=== PATIENT | male | born 1940 | race Native Hawaiian/Other Pacific Islander ===

== ENCOUNTER 2017-01-11 11:44 | Inpatient (IN) | payer MEDICARE, OTHER ==
[2017-01-11 18:58] VITALS: BMI 27.6
--- NOTE | 2017-01-11 19:26 | CP.PCM.HP ---
History of Present Illness - History of Present Illness History of Present Illness: 76 yo female with history of previous CVA with residual speech deficit, CAD ( CABG), DM2, COPD, AFib (on Xarelto), CHF and CKD brought [place] [facility] [place] because of sudden right sided weakness and right facial droop. CT scan of the head showed left putamen hemorrhagic infarct. Pt was admitted in ICU and all anticoagulant and antiplatelet were held. Pt is now transferred and admitted to acute rehab to continue management and continue rehab. including PT/OT and speech therapy. Present on Admission - Present on Admission Any Indicators Present on Admission: No History of DVT/PE: No History of Uncontrolled Diabetes: No Urinary Catheter: No Decubitus Ulcer Present: No Review of Systems - Review of Systems All systems: reviewed and no additional remarkable complaints except (aside from those mentioned above, 12 point system review were negative by me) Past Patient History - Infectious Disease Hx of Infectious Diseases: None - Tetanus Immunizations Tetanus Immunization: Unknown - Past Medical History & Family History Past Medical History?: Yes - Past Social History Smoking Status: Heavy Smoker > 10 Cigarettes Daily Chewing Tobacco Use: No Cigar Use: No Alcohol: None Drugs: Denies Home Situation {Lives}: With Family - CARDIAC Hx Atrial Fibrillation: Yes Hx Congestive Heart Failure: Yes Hx Hypercholesterolemia: Yes Hx Hypertension: Yes - PULMONARY Hx Chronic Obstructive Pulmonary Disease (COPD): Yes - NEUROLOGICAL HX Cerebrovascular Accident: Yes - HEENT Hx HEENT Problems: No - RENAL Hx Chronic Kidney Disease: Yes - ENDOCRINE/METABOLIC Hx Diabetes Mellitus Type 2: Yes - HEMATOLOGICAL/ONCOLOGICAL Hx Blood Disorders: No - INTEGUMENTARY Hx Dermatological Problems: No - MUSCULOSKELETAL/RHEUMATOLOGICAL Hx Musculoskeletal Disorders: No - GASTROINTESTINAL Hx Gastrointestinal Disorders: No - GENITOURINARY/GYNECOLOGICAL Hx Genitourinary Disorders: No - PSYCHIATRIC Hx Psychophysiologic Disorder: No - SURGICAL HISTORY Hx Coronary Artery Bypass Graft: Yes - ANESTHESIA Hx Anesthesia: Yes Hx Anesthesia Reactions: No Meds Allergies/Adverse Reactions: Allergies Allergy/AdvReac Type Severity Reaction Status Date / Time No Known Allergies Allergy Verified 01/11/17 14:04 Physical Exam - Constitutional Appears: No Acute Distress - Head Exam Head Exam: ATRAUMATIC - Eye Exam Eye Exam: absent: Scleral icterus - ENT Exam ENT Exam: Mucous Membranes Moist - Neck Exam Neck exam: Negative for: Meningismus - Respiratory Exam Respiratory Exam: Clear to Auscultation Bilateral. absent: Respiratory Distress - Cardiovascular Exam Cardiovascular Exam: REGULAR RHYTHM, +S1, +S2 - GI/Abdominal Exam GI & Abdominal Exam: Soft. absent: Tenderness - Rectal Exam Rectal Exam: Deferred - Neurological Exam Neurological exam: Alert, Oriented x3 - Psychiatric Exam Psychiatric exam: Normal Affect - Skin Skin Exam: Dry, Intact Assessment & Plan (1) CVA (cerebral vascular accident) Status: Acute Comment: admit to Acute Rehab. physiatry consult with Dr Leija. continue PT/ OT and speech therapy (2) CAD (coronary artery disease) Status: Acute Comment: hold ASA and Xarelto. continue statin and Metoprolol (3) Afib Status: Acute Comment: rate controlled. continue Cardizem and Metoprolol. hold Xarelto and ASA (4) HTN (hypertension) Status: Acute Comment: continue Amlodipine, Metoprolol, Valsartan and Cardizem (5) DM2 (diabetes mellitus, type 2) Status: Acute Comment: accuchek ACHS with low Lispro coverage. HgA1C, BMP in am. Metformin 500mg PO BID (6) COPD (chronic obstructive pulmonary disease) Status: Acute Comment: Duoneb q 4hrs prn for wheezing/SOB. Fluticasone/Vilanterol inhaler daily
[2017-01-11] MEDS ORDERED: Albuterol-Ipratrop 3 mg / 0.5 (3 ml) UD IH PRN (19:35)
[2017-01-11] MEDS: Insulin Lispro (humaLOG) 100 Units/ml Inj SC SCH (21:50)
[2017-01-12] MEDS: Pantoprazole 40 mg EC Tab PO SCH (06:22)
[2017-01-12] MEDS: Insulin Lispro (humaLOG) 100 Units/ml Inj SC SCH ×4 (06:42→21:20)
[2017-01-12 07:18] LABS: BASO % 0.5 % (0.0-2.0); EOS # 0.4 K/uL (0.0-0.7); HEMATOCRIT 33.8 % (35.0-51.0); LYMPH # 1.5 K/uL (1.0-4.3); LYMPH % 21.6 % (20.0-40.0); MEAN CELL VOLUME 94.7 fl (80.0-94.0); MEAN CORPUSCULAR HEMOGLOBIN 31.5 pg (27.0-31.0); MEAN CORPUSCULAR HGB CONC 33.2 g/dL (33.0-37.0); MEAN PLATELET VOLUME 8.9 fl (7.2-11.7); MONO # 0.6 K/uL (0.0-0.8); MONO % 8.9 % (0.0-10.0); NEUT # 4.2 K/uL (1.8-7.0); NRBC % 0.1 % (0.0-0.0); RED CELL DISTRIBUTION WIDTH 13.7 % (11.5-14.5); WHITE BLOOD COUNT 6.7 K/uL (4.8-10.8)
[2017-01-12 07:32] LABS: BLOOD UREA NITROGEN 15 mg/dl (9-20); CALCIUM 8.8 mg/dL (8.4-10.2); CARBON DIOXIDE 26 mmol/L (22-30); CHLORIDE 107 mmol/L (98-107); GFR AFRICAN-AMERICAN > 60; GLUCOSE,RANDOM 86 mg/dL (75-110); POTASSIUM 3.6 MMOL/L (3.6-5.0); SODIUM 143 mmol/l (132-148)
[2017-01-12] MEDS: Fluticasone-Salmeterol 250-50mcg Diskus IH SCH ×2 (09:46→21:18)
--- NOTE | 2017-01-12 12:53 | CP.PCM.CON ---
History of Present Illness - History of Present Illness History of Present Illness: Dr. Leija PMR consultation on Ann Jonas, born 1940, who has been admitted to [facility] for acute inpatient rehabilitation following a repeat CVA with left ICH and right HP. He has had some good early recovery. He also had a CVA with primarily a speech issue. Again, with some dysarthria and dysphagia. He is right hand dominant Review of Systems - Constitutional Constitutional: absent: Anorexia, Chills - EENT Nose/Mouth/Throat: absent: Nasal Congestion, Bleeding Gums - Cardiovascular Cardiovascular: absent: Chest Pain - Respiratory Respiratory: absent: Cough, Wheezing - Gastrointestinal Gastrointestinal: absent: Abdominal Pain, Constipation - Musculoskeletal Musculoskeletal: absent: Back Pain - Integumentary Integumentary: absent: Bleeding Lesions, Pruritus - Neurological Neurological: Abnormal Gait. absent: Dizziness, Radicular Pain - Psychiatric Psychiatric: absent: Anxiety Past Patient History - Infectious Disease Hx of Infectious Diseases: None - Tetanus Immunizations Tetanus Immunization: Unknown - Past Medical History & Family History Past Medical History?: Yes - Past Social History Smoking Status: Heavy Smoker > 10 Cigarettes Daily Chewing Tobacco Use: No Cigar Use: No Alcohol: None Drugs: Denies Home Situation {Lives}: With Family (+ steps) - CARDIAC Hx Atrial Fibrillation: Yes Hx Congestive Heart Failure: Yes Hx Hypercholesterolemia: Yes Hx Hypertension: Yes - PULMONARY Hx Chronic Obstructive Pulmonary Disease (COPD): Yes - NEUROLOGICAL HX Cerebrovascular Accident: Yes - HEENT Hx HEENT Problems: No - RENAL Hx Chronic Kidney Disease: Yes - ENDOCRINE/METABOLIC Hx Diabetes Mellitus Type 2: Yes - HEMATOLOGICAL/ONCOLOGICAL Hx Blood Disorders: No - INTEGUMENTARY Hx Dermatological Problems: No - MUSCULOSKELETAL/RHEUMATOLOGICAL Hx Musculoskeletal Disorders: No - GASTROINTESTINAL Hx Gastrointestinal Disorders: No - GENITOURINARY/GYNECOLOGICAL Hx Genitourinary Disorders: No - PSYCHIATRIC Hx Psychophysiologic Disorder: No - SURGICAL HISTORY Hx Coronary Artery Bypass Graft: Yes - ANESTHESIA Hx Anesthesia: Yes Hx Anesthesia Reactions: No Meds Allergies/Adverse Reactions: Allergies Allergy/AdvReac Type Severity Reaction Status Date / Time No Known Allergies Allergy Verified 01/11/17 14:04 - Medications Medications: Current Medications Albuterol/Ipratropium (Duoneb 3 Mg/0.5 Mg (3 Ml) Ud) 3 ml IH Q4 PRN PRN Reason: Wheezing, SOB Amlodipine Besylate (Norvasc) 10 mg PO DAILY [facility] Last Admin: 01/12/17 09:47 Dose: 10 mg Atorvastatin Calcium (Lipitor) 80 mg PO HS [facility] Last Admin: 01/11/17 22:04 Dose: 80 mg Diltiazem HCl (Cardizem) 30 mg PO Q8 [facility] Last Admin: 01/12/17 06:22 Dose: 30 mg Insulin Human Lispro (Humalog) 0 units SC [facility] PRN Reason: Protocol Last Admin: 01/12/17 12:05 Dose: Not Given Metformin HCl (Glucophage) 500 mg PO BID [facility] Last Admin: 01/12/17 09:46 Dose: 500 mg Metoprolol Tartrate (Lopressor) 100 mg PO Q12 [facility] Last Admin: 01/12/17 09:46 Dose: 100 mg Pantoprazole Sodium (Protonix Ec Tab) 40 mg PO 0630 [facility] Last Admin: 01/12/17 06:22 Dose: 40 mg Fluticasone/Salmeterol (Advair Diskus 250/50) 1 puff IH Q12 [facility] Last Admin: 01/12/17 09:46 Dose: 1 puff Valsartan (Diovan) 160 mg PO DAILY [facility] Last Admin: 01/12/17 09:48 Dose: 160 mg Physical Exam - Constitutional Appears: Non-toxic, No Acute Distress - Head Exam Head Exam: ATRAUMATIC, NORMAL INSPECTION, NORMOCEPHALIC - Eye Exam Eye Exam: EOMI, Normal appearance - ENT Exam ENT Exam: Mucous Membranes Moist - Respiratory Exam Respiratory Exam: NORMAL BREATHING PATTERN - Cardiovascular Exam Cardiovascular Exam: REGULAR RHYTHM - GI/Abdominal Exam GI & Abdominal Exam: absent: Distended, Firm - Extremities Exam Extremities exam: Negative for: calf tenderness, pedal edema - Neurological Exam Neurological exam: Alert, Oriented x3 - Psychiatric Exam Psychiatric exam: Normal Affect, Normal Mood Results - Vital Signs Recent Vital Signs: Last Vital Signs Temp 98.0 F 01/12/17 08:43 Pulse 67 01/12/17 09:47 Resp 20 01/12/17 08:43 BP 141/71 01/12/17 09:47 Pulse Ox 98 01/12/17 08:43 - Labs Result Diagrams: 01/12/17 07:05 01/12/17 07:05 Labs: Laboratory Results - last 24 hr 01/11/17 01/12/17 01/12/17 20:46 06:20 07:05 WBC 6.7 RBC 3.57 L Hgb 11.2 L Hct 33.8 L MCV 94.7 H MCH 31.5 H MCHC 33.2 RDW 13.7 Plt Count 174 MPV 8.9 Neut % (Auto) 63.0 Lymph % (Auto) 21.6 Gove % (Auto) 8.9 Eos % (Auto) 6.0 H Baso % (Auto) 0.5 Neut # 4.2 Lymph # 1.5 Gove # 0.6 Eos # 0.4 Baso # 0.0 Sodium 143 Potassium 3.6 Chloride 107 Carbon Dioxide 26 Anion Gap 13 BUN 15 Creatinine 1.0 Est GFR ( Amer) > 60 Est GFR (Non-Af Amer) > 60 POC Glucose (mg/dL) 148 H 98 Random Glucose 86 Calcium 8.8 01/12/17 12:02 WBC RBC Hgb Hct MCV MCH MCHC RDW Plt Count MPV Neut % (Auto) Lymph % (Auto) Gove % (Auto) Eos % (Auto) Baso % (Auto) Neut # Lymph # Gove # Eos # Baso # Sodium Potassium Chloride Carbon Dioxide Anion Gap BUN Creatinine Est GFR ( Amer) Est GFR (Non-Af Amer) POC Glucose (mg/dL) 98 Random Glucose Calcium Assessment & Plan - Assessment and Plan (Free Text) Assessment: left ICH with right HP minimal residual on MMT sit to stand contact guard assist Plan: PT/OT to continue to help increase functional independence Team conference for d/c planning Pain: controlled Vascular: no evidence of DVT GI: No evidence of constipation or diarrhea Patient is an excellent acute rehabilitation candidate and will have focused speech, PT, OT and recreational therapy to help facilitate a safe and appropriate d/c plan impairment code 01.2
--- NOTE | 2017-01-12 14:47 | CON ---
DATE: 01/12/2017 CHIEF COMPLAINT: Right-sided weakness. HISTORY OF PRESENT ILLNESS: This is a 76-year-old man with an history of old cerebrovascular acciden t with residual speech deficit, coronary artery disease, type 2 diabetes mellitus, COPD; AFib, was on Xarelto; CHF, CKD, who was brought to [facility] on 01/06/2017 because of sudden ons et right-sided weakness, right facial droop and slurred speech. A CT of the head showed left putamen hemorrhage/infarct. The patient was in ICU and old anticoagulants/antiplatelets were held. He was on Xarelto at that time. The patient also has history of chronic atrial fibrillation and has history of persistent atrial flutter where he was managed in [facility]. Currently he is at [facility] for ongoing physical therapy for his right-sided weakness. He is doing very well, able to lift up the arms and very limited pronator drift on the right. He is able to throw the ball and walk with assistance. He has some expressive aphasia. REVIEW OF SYSTEMS: A 14-point review of systems is negative except for the HPI. PAST MEDICAL HISTORY: History of CVA in the past with residual deficit, CAD, CABG, type 2 diabetes, COPD; AFib, on Xarelto; with a recent CVA with a left putaminal hemorrhage on 01/06/2017. SOCIAL HISTORY: No illicit drug use, smoking, or ETOH abuse at this time. FAMILY HISTORY: Noncontributory. REVIEW OF SYSTEMS: A 14-point review of systems is negative except for the HPI. ALLERGIES: No known drug allergies. HOME MEDICATIONS: Reviewed via nurse's reconciliation sheet. ____: Noncontributory. PHYSICAL EXAMINATION: VITAL SIGNS: Temperature 98, pulse rate 67, blood pressure 141/71, respiratory rate 20, oxygen 98% v ia room air. GENERAL: The patient is sitting up in bed, in no acute distress. HEENT: Atraumatic, normocephalic. PERRLA. Extraocular muscles intact. NECK: Supple. No JVD, no adenopathy noted. HEART: Irregular rate and rhythm. No murmurs, rubs, or gallops. ABDOMEN: Soft, nontender, nondistended. Bowel sounds present. EXTREMITIES: No clubbing, no cyanosis. Peripheral pulses 2+ felt bilaterally. NEUROLOGIC: The patient is alert, oriented to person, place, month and year. Poor attention span. Slow thought process. Recall after 5 minutes is 1/3. Speech is dysarthric with some mild expressive aphasia. MOTOR: Has mild right-sided weakness 4++ to 5-/5 on the right when compared to the left. Toes are u pgoing bilaterally. SENSORY: Light touch, pinprick, proprioception, vibration intact except for decreased vibration of t he toes and knees. REFLEXES: DTRs are 2+ throughout and 1 at the knees and ankles. COORDINATION: [id number] intact. GAIT: Deferred for now. LABORATORY DATA: Sodium 143, potassium 3.6, chloride 107, carbon dioxide 26, BUN 15, creatinine 1. Random glucose of 86. ASSESSMENT AND PLAN: This is a 76-year-old man with past medical history of coronary artery disease, status post coronary artery bypass graft, history of type 2 diabetes mellitus, history of dyslipidem ia, history of chronic obstructive pulmonary disease, history of cerebrovascular accident in 11/2015 with residual speech deficit; history of atrial fibrillation, was on Xarelto; who came in to [facility] on 01/06/2017 for right-sided weakness and dysarthria, found to have a left putami nal hemorrhage secondary to uncontrolled blood pressure as well as being on Xarelto. He still a smok er; smokes 10 cigarettes for the past 60 years. His left putaminal hemorrhage is secondary to uncont rolled hypertension, superimposed underlying atherosclerotic disease and being on Xarelto. At this t [place], recommend: 1. Repeat CAT scan in 2 weeks from the onset of the bleed. If stable, can place the patient on a ba by aspirin 81 mg and, on the 4th week, instead of Xarelto would like to place the patient Eliquis 2.5 mg p.o. b.i.d. if the patient's CAT scan is stable. 2. The patient will follow up with his chief of internal medicine, Dr. Yap, as an outpatient. 3. Continue with physical, occupational and speech therapy here at [facility]. 4. Advise smoking cessation since it is a risk factor for him having strokes, and continue with curr ent present medical management. Once again, thank you for this consult. Ari Infante MD cc: [id number] TT: 01/12/2017 14:47:10 Confirmation # [id number] Dictation # [id number]
--- NOTE | 2017-01-12 17:38 | CP.PCM.PN ---
Subjective - Date & Time of Evaluation Date of Evaluation: 01/12/17 Time of Evaluation: 17:37 - Subjective Subjective: left ICH, right HP Objective - Vital Signs/Intake and Output Vital Signs (last 24 hours): Temp Pulse Resp BP Pulse Ox 97.7 F 62 20 119/56 L 100 01/12/17 16:54 01/12/17 16:54 01/12/17 16:54 01/12/17 16:54 01/12/17 16:54 - Medications Medications: Current Medications Albuterol/Ipratropium (Duoneb 3 Mg/0.5 Mg (3 Ml) Ud) 3 ml IH Q4 PRN PRN Reason: Wheezing, SOB Amlodipine Besylate (Norvasc) 10 mg PO DAILY [facility] Last Admin: 01/12/17 09:47 Dose: 10 mg Atorvastatin Calcium (Lipitor) 80 mg PO HS [facility] Last Admin: 01/11/17 22:04 Dose: 80 mg Diltiazem HCl (Cardizem) 30 mg PO Q8 [facility] Last Admin: 01/12/17 13:32 Dose: 30 mg Insulin Human Lispro (Humalog) 0 units SC [facility] PRN Reason: Protocol Last Admin: 01/12/17 16:58 Dose: Not Given Metformin HCl (Glucophage) 500 mg PO BID [facility] Last Admin: 01/12/17 16:57 Dose: 500 mg Metoprolol Tartrate (Lopressor) 100 mg PO Q12 [facility] Last Admin: 01/12/17 09:46 Dose: 100 mg Pantoprazole Sodium (Protonix Ec Tab) 40 mg PO 0630 [facility] Last Admin: 01/12/17 06:22 Dose: 40 mg Fluticasone/Salmeterol (Advair Diskus 250/50) 1 puff IH Q12 [facility] Last Admin: 01/12/17 09:46 Dose: 1 puff Valsartan (Diovan) 160 mg PO DAILY [facility] Last Admin: 01/12/17 09:48 Dose: 160 mg - Labs Labs: 01/12/17 07:05 01/12/17 07:05 Physiatry Overall Plan of Care - Overall Plan of Care Estimated Length of Stay in Weeks: 2 Rehab Impairment: Mobility, Gait, Speech, Balance Etiologic Diagnosis: Cerebrovascular Accident Rehab/Medical Prognosis: Good - Anticipated Interventions Physical Therapy:: Yes Occupational Therapy:: Yes Speech Therapy:: Yes Recreational Therapy:: Yes - Therapy Goals Bed Mobility: Independent Ambulation: Supervision Functional Positional Changes:: Supervision - Discharge Plan Identification of Barriers to Discharge: Home Situation Discharge Destination: Home
[2017-01-13] MEDS: Pantoprazole 40 mg EC Tab PO SCH (07:08)
[2017-01-13] MEDS: Insulin Lispro (humaLOG) 100 Units/ml Inj SC SCH ×4 (07:08→21:36)
[2017-01-13] MEDS: Fluticasone-Salmeterol 250-50mcg Diskus IH SCH ×2 (08:33→21:06)
[2017-01-13] MEDS ORDERED: Docusate-Senna 50 mg-8.6 mg Tab PO PRN (18:00)
--- NOTE | 2017-01-13 18:28 | CP.PCM.PN ---
Subjective - Date & Time of Evaluation Date of Evaluation: 01/13/17 Time of Evaluation: 18:28 - Subjective Subjective: Patient seen in room denies sob/cp no fever or LOZANO sit to stand CS improved and feels good in PT/OT Objective - Vital Signs/Intake and Output Vital Signs (last 24 hours): Temp Pulse Resp BP Pulse Ox 97.8 F 56 L 20 148/74 95 01/13/17 15:45 01/13/17 15:45 01/13/17 15:45 01/13/17 15:45 01/13/17 15:45 - Medications Medications: Current Medications Albuterol/Ipratropium (Duoneb 3 Mg/0.5 Mg (3 Ml) Ud) 3 ml IH Q4 PRN PRN Reason: Wheezing, SOB Amlodipine Besylate (Norvasc) 10 mg PO DAILY [facility] Last Admin: 01/13/17 08:34 Dose: 10 mg Atorvastatin Calcium (Lipitor) 80 mg PO HS [facility] Last Admin: 01/12/17 21:18 Dose: 80 mg Diltiazem HCl (Cardizem) 30 mg PO Q8 [facility] Last Admin: 01/13/17 14:29 Dose: 30 mg Insulin Human Lispro (Humalog) 0 units SC [facility] PRN Reason: Protocol Last Admin: 01/13/17 16:58 Dose: Not Given Metformin HCl (Glucophage) 500 mg PO BID [facility] Last Admin: 01/13/17 17:00 Dose: 500 mg Metoprolol Tartrate (Lopressor) 100 mg PO Q12 [facility] Last Admin: 01/13/17 08:33 Dose: 100 mg Pantoprazole Sodium (Protonix Ec Tab) 40 mg PO 0630 [facility] Last Admin: 01/13/17 07:08 Dose: 40 mg Fluticasone/Salmeterol (Advair Diskus 250/50) 1 puff IH Q12 [facility] Last Admin: 01/13/17 08:33 Dose: 1 puff Senna/Docusate Sodium (Senokot S 50 Mg-8.6 Mg) 2 tab PO HS PRN PRN Reason: Constipation Valsartan (Diovan) 160 mg PO DAILY [facility] Last Admin: 01/13/17 08:33 Dose: 160 mg - Labs Labs: 01/12/17 07:05 01/12/17 07:05
[2017-01-14] MEDS: Pantoprazole 40 mg EC Tab PO SCH (05:52)
[2017-01-14] MEDS: Insulin Lispro (humaLOG) 100 Units/ml Inj SC SCH ×4 (06:32→21:09)
[2017-01-14] MEDS: Fluticasone-Salmeterol 250-50mcg Diskus IH SCH ×2 (08:42→20:37)
--- NOTE | 2017-01-14 09:19 | CP.PCM.PN ---
Subjective - Date & Time of Evaluation Date of Evaluation: 01/14/17 Time of Evaluation: 14:19 - Subjective Subjective: no new complaints no chest pain no sob no new weakness tolerating pt well feels improving vss nad Objective - Vital Signs/Intake and Output Vital Signs (last 24 hours): Temp Pulse Resp BP Pulse Ox 97.7 F 67 18 121/54 L 100 01/14/17 07:41 01/14/17 08:43 01/14/17 07:41 01/14/17 08:43 01/14/17 07:41 Gen: WDWN, cooperative, alert HEENT: NCAT, PERRL, EOMI, no erythema, exudates, gross hearing intact, no lesions Neck: Soft, supple, no lymphadenopathy, no JVD Heart: +S1S2, RRR, No MRG Lung: CTAB, No WRR Abd: soft, NT, ND, BSx4, no HSM, no masses Ext: warm, well perfused, pedal pulses intact Neuro: AAOx3 Skin: Warm, Dry, no rash Psych: Normal mood, affect with appropriate range - Medications Medications: Current Medications Albuterol/Ipratropium (Duoneb 3 Mg/0.5 Mg (3 Ml) Ud) 3 ml IH Q4 PRN PRN Reason: Wheezing, SOB Amlodipine Besylate (Norvasc) 10 mg PO DAILY [facility] Last Admin: 01/14/17 08:43 Dose: 10 mg Atorvastatin Calcium (Lipitor) 80 mg PO HS [facility] Last Admin: 01/13/17 21:04 Dose: 80 mg Diltiazem HCl (Cardizem) 30 mg PO Q8 [facility] Last Admin: 01/14/17 05:57 Dose: 30 mg Insulin Human Lispro (Humalog) 0 units SC [facility] PRN Reason: Protocol Last Admin: 01/14/17 06:32 Dose: Not Given Metformin HCl (Glucophage) 500 mg PO BID [facility] Last Admin: 01/14/17 08:42 Dose: 500 mg Metoprolol Tartrate (Lopressor) 100 mg PO Q12 [facility] Last Admin: 01/14/17 08:43 Dose: 100 mg Pantoprazole Sodium (Protonix Ec Tab) 40 mg PO 0630 [facility] Last Admin: 01/14/17 05:52 Dose: 40 mg Fluticasone/Salmeterol (Advair Diskus 250/50) 1 puff IH Q12 [facility] Last Admin: 01/14/17 08:42 Dose: 1 puff Senna/Docusate Sodium (Senokot S 50 Mg-8.6 Mg) 2 tab PO HS PRN PRN Reason: Constipation Last Admin: 01/13/17 21:06 Dose: 2 tab Valsartan (Diovan) 160 mg PO DAILY [facility] Last Admin: 01/14/17 08:42 Dose: 160 mg - Labs Labs: 01/12/17 07:05 01/12/17 07:05 Assessment and Plan - Assessment and Plan (Free Text) Plan: 76 yo female with history of previous CVA with residual speech deficit, CAD ( CABG), DM2, COPD, AFib (on Xarelto), CHF and CKD [place] [facility] [place] because of sudden right sided weakness and right facial droop. CT scan of the head showed left putamen hemorrhagic infarct. Pt was admitted in ICU and all anticoagulant and antiplatelet were held. Pt is now transferred and admitted to acute rehab to continue management and continue rehab. including PT/OT and speech therapy. (1) CVA (cerebral vascular accident) Status: Acute Comment: physiatry consult with Dr Leija. continue PT/OT and speech therapy HOLD asa statin neuro consult Dr. Infante (2) CAD (coronary artery disease) Status: Acute Comment: hold ASA and Xarelto. continue statin and Metoprolol and Diovan (3) Afib Status: Acute Comment: rate controlled. continue Cardizem and Metoprolol. hold Xarelto and ASA (4) HTN (hypertension) Status: Acute Comment: continue Amlodipine, Metoprolol, Valsartan and Cardizem (5) DM2 (diabetes mellitus, type 2) Status: Acute Comment: accuchek ACHS with low Lispro coverage. HgA1C, BMP in am. Metformin 500mg PO BID (6) COPD (chronic obstructive pulmonary disease) Status: Acute Comment: Duoneb q 4hrs prn for wheezing/SOB. Fluticasone/Salmeterol inhaler daily
[2017-01-15] MEDS: Pantoprazole 40 mg EC Tab PO SCH (06:20)
[2017-01-15] MEDS: Insulin Lispro (humaLOG) 100 Units/ml Inj SC SCH ×4 (06:31→22:33)
[2017-01-15] MEDS: Fluticasone-Salmeterol 250-50mcg Diskus IH SCH ×2 (08:45→21:38)
[2017-01-16] MEDS: Pantoprazole 40 mg EC Tab PO SCH (06:34)
[2017-01-16] MEDS: Insulin Lispro (humaLOG) 100 Units/ml Inj SC SCH ×4 (07:26→22:28)
[2017-01-16] MEDS: Fluticasone-Salmeterol 250-50mcg Diskus IH SCH ×2 (08:34→21:31)
[2017-01-16] MEDS ORDERED: Phenylephrine 0.25 % Supp PR PRN (17:40)
[2017-01-17] MEDS: Zinc Oxide 5 APPL/28 GM OINT TP SCH ×3 (00:21→17:11)
[2017-01-17] MEDS: Insulin Lispro (humaLOG) 100 Units/ml Inj SC SCH ×4 (07:04→21:35)
[2017-01-17] MEDS: Pantoprazole 40 mg EC Tab PO SCH (07:04)
[2017-01-17] MEDS: Fluticasone-Salmeterol 250-50mcg Diskus IH SCH ×2 (08:36→21:26)
--- NOTE | 2017-01-17 13:33 | CP.PCM.PN ---
Subjective - Date & Time of Evaluation Date of Evaluation: 01/17/17 Time of Evaluation: 13:32 - Subjective Subjective: tolerating PT well, feeling well no complaints no cp no sob +hemorrhoids, +constipation - give cream from home, will give additional stool softeners/laxative Objective - Vital Signs/Intake and Output Vital Signs (last 24 hours): Temp Pulse Resp BP Pulse Ox 97.5 F L 69 18 139/77 99 01/17/17 08:00 01/17/17 08:37 01/17/17 08:00 01/17/17 08:37 01/17/17 08:00 Gen: WDWN, cooperative, alert HEENT: NCAT, PERRL, EOMI, no erythema, exudates, gross hearing intact, no lesions Neck: Soft, supple, no lymphadenopathy, no JVD Heart: +S1S2, RRR, No MRG Lung: CTAB, No WRR Abd: soft, NT, ND, BSx4, no HSM, no masses Ext: warm, well perfused, pedal pulses intact Neuro: AAOx3 Skin: Warm, Dry, no rash Psych: Normal mood, affect with appropriate range - Medications Medications: Current Medications Albuterol/Ipratropium (Duoneb 3 Mg/0.5 Mg (3 Ml) Ud) 3 ml IH Q4 PRN PRN Reason: Wheezing, SOB Amlodipine Besylate (Norvasc) 10 mg PO DAILY [facility] Last Admin: 01/17/17 08:36 Dose: 10 mg Atorvastatin Calcium (Lipitor) 80 mg PO HS [facility] Last Admin: 01/16/17 21:32 Dose: 80 mg Diltiazem HCl (Cardizem) 30 mg PO Q8 [facility] Last Admin: 01/17/17 06:49 Dose: 30 mg Insulin Human Lispro (Humalog) 0 units SC ACHS [facility] PRN Reason: Protocol Last Admin: 01/17/17 12:17 Dose: Not Given Metformin HCl (Glucophage) 500 mg PO BID [facility] Last Admin: 01/17/17 08:36 Dose: 500 mg Metoprolol Tartrate (Lopressor) 100 mg PO Q12 [facility] Last Admin: 01/17/17 08:37 Dose: 100 mg Pantoprazole Sodium (Protonix Ec Tab) 40 mg PO 0630 [facility] Last Admin: 01/17/17 07:04 Dose: 40 mg Petrolatum (Boudreauxs) 1 appl TP BID [facility] Last Admin: 01/17/17 08:35 Dose: 1 appl Phenylephrine HCl (Preparation H Suppositories) 1 supp [place] BID PRN PRN Reason: hemorrhoid Fluticasone/Salmeterol (Advair Diskus 250/50) 1 puff IH Q12 [facility] Last Admin: 01/17/17 08:36 Dose: 1 puff Senna/Docusate Sodium (Senokot S 50 Mg-8.6 Mg) 2 tab PO HS PRN PRN Reason: Constipation Last Admin: 01/13/17 21:06 Dose: 2 tab Valsartan (Diovan) 160 mg PO DAILY [facility] Last Admin: 01/17/17 08:38 Dose: 160 mg - Labs Labs: 01/12/17 07:05 01/12/17 07:05 Assessment and Plan - Assessment and Plan (Free Text) Plan: 76 yo female with history of previous CVA with residual speech deficit, CAD ( CABG), DM2, COPD, AFib (on Xarelto), CHF and CKD brought to [facility] on 01/06/2017 because of sudden right sided weakness and right facial droop. CT scan of the head showed left putamen hemorrhagic infarct. Pt was admitted in ICU and all anticoagulant and antiplatelet were held. Pt is now transferred and admitted to acute rehab to continue management and continue rehab. including PT/OT and speech therapy. (1) CVA (cerebral vascular accident) Status: Acute Comment: physiatry consult with Dr Leija. continue PT/OT and speech therapy HOLD asa statin neuro consult Dr. Infante (2) CAD (coronary artery disease) Status: Acute Comment: hold ASA and Xarelto. continue statin and Metoprolol and Diovan (3) Afib Status: Acute Comment: rate controlled. continue Cardizem and Metoprolol. hold Xarelto and ASA (4) HTN (hypertension) Status: Acute Comment: continue Amlodipine, Metoprolol, Valsartan and Cardizem (5) DM2 (diabetes mellitus, type 2) Status: Acute Comment: accuchek ACHS with low Lispro coverage. HgA1C, BMP in am. Metformin 500mg PO BID (6) COPD (chronic obstructive pulmonary disease) Status: Acute Comment: Duoneb q 4hrs prn for wheezing/SOB. Fluticasone/Salmeterol inhaler daily (7) Hemorrhoids continue hemorrhoid cream
[2017-01-17] MEDS: POLYETHYLENE GLYCOL 3350 17 GM/Dose PACKET PO SCH (14:53)
[2017-01-18] MEDS: Pantoprazole 40 mg EC Tab PO SCH (06:01)
[2017-01-18] MEDS: Insulin Lispro (humaLOG) 100 Units/ml Inj SC SCH ×4 (07:10→21:38)
[2017-01-18] MEDS: Fluticasone-Salmeterol 250-50mcg Diskus IH SCH ×2 (09:13→21:33)
[2017-01-18] MEDS: Zinc Oxide 5 APPL/28 GM OINT TP SCH ×2 (09:15→16:51)
[2017-01-18] MEDS: POLYETHYLENE GLYCOL 3350 17 GM/Dose PACKET PO SCH (09:20)
--- NOTE | 2017-01-18 13:37 | PSY.TMCNF ---
Nursing - Vital Signs Vital Signs (Last 8 hours): Vital Signs 01/18/17 01/18/17 01/18/17 06:01 09:00 09:18 Temperature 97.3 F L Pulse Rate 67 66 63 Respiratory 20 Rate Blood Pressure 137/71 137/86 137/73 O2 Sat by Pulse 97 Oximetry 01/18/17 09:20 Temperature Pulse Rate 66 Respiratory Rate Blood Pressure 137/86 O2 Sat by Pulse Oximetry Pain: 0 - Precautions: Precautions: Fall Prevention - Medications/Other Issues Comment: Safety - Consults Comment: Dr. Leija, Dr. Infante - Toileting Toileting: Minimal Assistance - Bladder Management Bladder Pattern: Normal Voiding Method: Urinal Bladder Management: Minimal Assistance - Bowel Management Bowel Pattern: Normal Bowel Management: Minimal Assistance - Transfers Transfers: Contact Guard - ADL's ADL's: Minimal Assistance - Pain Management Comments: Denies pain - Patient/Family Teaching Comments: Safety and post CVA care - Goals/Time Frame Comments: Per IPOC Physical Therapy - Bed Mobility Bed Mobility: Supervision - Transfers Wheelchair to Mat: Verbal Cues, Contact Guard Sit to Stand: Supervision, Verbal Cues - Ambulation Level of Assistance: Verbal Cues, Contact Guard Distance (ft.): 180 Assistive Devices: Single point cane Comment: Gait deviations: narrow JOSELINE, decreased heel strike and step height on RLE, impulsivity, discontinuous steps when performing turns - Stair Negotiation Stairs: Level of Assistance: Supervision, Verbal Cues Number of Stairs: 11 Handrails: Right Stairs: Assistive Devices: Right Handrail, Single point cane - Standing Balance Static Stand: Supervision Dynamic Stand: Contact Guard Assist - Pain Pain (assessed during therapy session): 0 - Insight/Carryover Insight/Carryover: Fair - Patient/Family Education Comment: Pt education provided for inc. safety awareness and proper techniques during functional mobility training. - Assessment/Plan Assessment: Pt requires encouragement to participate in sessions and will participate in recreation therapy sessions if pt is interested. Pt currently requires min-mod verbal cues for word recall and for safety awareness. Pt demonstrates decrease carryover of orientation and safety cues. Pt is forgetful at times and requires verbal cues for orientation. - Goals Timeframe: 2 weeks Goals: SIt < > supine with independence. Sit < > stand with mod I/ I. Ambulate 500 ft on even/uneven surfaces mod I. ascend/descend 10 stairs with one handrail mod I - Provider License Number: [id number] Occupational Therapy - Arousal/Attention/Orientation Patient Orientation: Person, Place, Time, Appropriate to Age - ADL/IADL Self Feeding: Supervision, Set-up Help Grooming: Supervision, Set-up Help Dressing-Upper Extremity: Supervision, Set-up Help Dressing-Lower Extremity: Supervision, Set-up Help, Contact Guard - Sitting Balance Static Sitting: Independent without upper extremity support Dynamic Sitting: Reaches across midline, Reaches within base of support, Requires supervision - Transfers Wheelchair to Bed Transfers: Contact Guard Toilet Transfers: Contact Guard Tub Transfers: Contact Guard - Wheelchair Management Level of Assistance: Supervision - Upper Extremity Status Right Upper Extremity Comment: R deckhand crab boat strength: 55#. R pinch strength: 13#. ROM = WFL. decreased coordination and fine motor control Left Upper Extremity Comment: L deckhand crab boat strength: 45#. L pinch strength: 12#. ROM = WFL - Pain Pain (assessed during therapy session): 0 - Insight/Carryover Insight/Carryover: Fair - Patient/Family Education Comment: Pt education provided for inc. safety awareness and proper techniques during functional mobility training. - Assessment/Plan Assessment: Pt requires encouragement to participate in sessions and will participate in recreation therapy sessions if pt is interested. Pt currently requires min-mod verbal cues for word recall and for safety awareness. Pt demonstrates decrease carryover of orientation and safety cues. Pt is forgetful at times and requires verbal cues for orientation. - Goals Timeframe: 2 weeks Goals: SIt < > supine with independence. Sit < > stand with mod I/ I. Ambulate 500 ft on even/uneven surfaces mod I. ascend/descend 10 stairs with one handrail mod I - Provider Therapist: Hardeep Bryant MS, OTR/L Speech Therapy - Consult Information Patient on Program: Yes Medical Diagnosis: CVA Treatment Diagnosis: -mild-moderate cognitive linguistic deficits. -mild- moderate dysarthria. -suspected mild oropharyngeal dysphagia - Assessment Expressive Language Impairment: Mild Problem Solving Impairment: Mild Memory Impairment: Moderate Speech/Articulation Impairment: Moderate Comment: mild-moderate dysarthria Dysphagia/Swallowing Impairment: Mild - Plan Assessment: Pt requires encouragement to participate in sessions and will participate in recreation therapy sessions if pt is interested. Pt currently requires min-mod verbal cues for word recall and for safety awareness. Pt demonstrates decrease carryover of orientation and safety cues. Pt is forgetful at times and requires verbal cues for orientation. - Provider Therapist: Roslyn Kc License Number: [id number] Recreational Therapy - Participation Participation: Participates in Individual and/or Group Sessions - Attendance Attendance: 3-5 times per week - Activities Leisure Activities: Cards and Games - Socialization Level of Socialization: Initiates/interacts freely with care givers and peer - Diversional Time Diversional Time: television - Assessment Assessment/Plan: Pt requires encouragement to participate in sessions and will participate in recreation therapy sessions if pt is interested. Pt currently requires min-mod verbal cues for word recall and for safety awareness. Pt demonstrates decrease carryover of orientation and safety cues. Pt is forgetful at times and requires verbal cues for orientation. Problems Currently Limiting Participation: impaired fine motor function, decrease direction following, impulsivity, decrease problem solving, decrease leisure awareness level Goals and Time Frame: Pt will be encouraged to participate in 1:1 and group recreation therapy sessions 3-5x week to improve problem solving skills, fine motor skills, and leisure awareness level. - Provider Therapist: Carol Mackay, [facility] #[id number] Nutrition - Current Diet Current Diet/ Supplement/ Feedings: Heart Healthy, Moderate Consistent Carbohydrate, 2 gm Na diet - Appetite Percent Meal Consumed: 50-74% - Comments Comments: Safety and post CVA care - Assessment/Goals/Time Frame Assessment/Goals/Time Frame: Safety - Provider Provider: Sushila Patricio MS, RD Case Management - Discharge Plan Discharge Plan: Home with significant other/family Rehabilitation Plan - Treatment Plan Treatment Plan: Physical Therapy, Occupational Therapy, Speech, Dietary, Patient /Family Education - Discharge Plan Estimated Date of Discharge: 01/25/17 Discharge to: Home
--- NOTE | 2017-01-18 14:21 | CP.PCM.PN ---
Subjective - Date & Time of Evaluation Date of Evaluation: 01/18/17 Time of Evaluation: 14:20 - Subjective Subjective: Patient seen in room denies sob/cp or fever no joint pain safety concerns in therapies and this was discussed with the family and that he cannot be alone at this point family is aware ELOS 01/25/17 Objective - Vital Signs/Intake and Output Vital Signs (last 24 hours): Temp Pulse Resp BP Pulse Ox 97.3 F L 66 20 137/86 97 01/18/17 09:00 01/18/17 14:16 01/18/17 09:00 01/18/17 14:16 01/18/17 09:00 - Medications Medications: Current Medications Albuterol/Ipratropium (Duoneb 3 Mg/0.5 Mg (3 Ml) Ud) 3 ml IH Q4 PRN PRN Reason: Wheezing, SOB Amlodipine Besylate (Norvasc) 10 mg PO DAILY [facility] Last Admin: 01/18/17 09:20 Dose: 10 mg Atorvastatin Calcium (Lipitor) 80 mg PO HS [facility] Last Admin: 01/17/17 21:25 Dose: 80 mg Diltiazem HCl (Cardizem) 30 mg PO Q8 [facility] Last Admin: 01/18/17 14:16 Dose: 30 mg Insulin Human Lispro (Humalog) 0 units SC ACHS [facility] PRN Reason: Protocol Last Admin: 01/18/17 12:21 Dose: Not Given Metformin HCl (Glucophage) 500 mg PO BID [facility] Last Admin: 01/18/17 09:17 Dose: 500 mg Metoprolol Tartrate (Lopressor) 100 mg PO Q12 [facility] Last Admin: 01/18/17 09:18 Dose: 100 mg Pantoprazole Sodium (Protonix Ec Tab) 40 mg PO 0630 [facility] Last Admin: 01/18/17 06:01 Dose: 40 mg Petrolatum (Boudreauxs) 1 appl TP BID [facility] Last Admin: 01/18/17 09:15 Dose: 1 appl Phenylephrine HCl (Preparation H Suppositories) 1 supp [place] BID PRN PRN Reason: hemorrhoid Polyethylene Glycol (Miralax) 17 gm PO DAILY [facility] Last Admin: 01/18/17 09:20 Dose: Not Given Fluticasone/Salmeterol (Advair Diskus 250/50) 1 puff IH Q12 [facility] Last Admin: 01/18/17 09:13 Dose: 1 puff Senna/Docusate Sodium (Senokot S 50 Mg-8.6 Mg) 2 tab PO HS PRN PRN Reason: Constipation Last Admin: 01/13/17 21:06 Dose: 2 tab Valsartan (Diovan) 160 mg PO DAILY [facility] Last Admin: 01/18/17 09:16 Dose: 160 mg - Labs Labs: 01/12/17 07:05 01/12/17 07:05
[2017-01-19] MEDS: Pantoprazole 40 mg EC Tab PO SCH (05:31)
[2017-01-19] MEDS: Insulin Lispro (humaLOG) 100 Units/ml Inj SC SCH ×4 (07:04→22:32)
[2017-01-19] MEDS: Zinc Oxide 5 APPL/28 GM OINT TP SCH ×2 (08:39→17:51)
[2017-01-19] MEDS: POLYETHYLENE GLYCOL 3350 17 GM/Dose PACKET PO SCH (08:40)
[2017-01-19] MEDS: Fluticasone-Salmeterol 250-50mcg Diskus IH SCH ×2 (08:40→22:05)
--- NOTE | 2017-01-19 11:58 | CP.PCM.PN ---
Subjective - Date & Time of Evaluation Date of Evaluation: 01/19/17 Time of Evaluation: 15:04 - Subjective Subjective: tolerating pt well no complaints good spirits states he woudl like to go home vss nad no cp no dyspnea Objective - Vital Signs/Intake and Output Vital Signs (last 24 hours): Temp Pulse Resp BP Pulse Ox 98.1 F 63 20 143/71 98 01/19/17 08:40 01/19/17 08:40 01/19/17 08:40 01/19/17 08:40 01/19/17 08:40 Gen: WDWN, cooperative, alert HEENT: NCAT, PERRL, EOMI, no erythema, exudates, gross hearing intact, no lesions Neck: Soft, supple, no lymphadenopathy, no JVD Heart: +S1S2, RRR, No MRG Lung: CTAB, No WRR Abd: soft, NT, ND, BSx4, no HSM, no masses Ext: warm, well perfused, pedal pulses intact Neuro: AAOx3 Skin: Warm, Dry, no rash Psych: Normal mood, affect with appropriate range - Medications Medications: Current Medications Albuterol/Ipratropium (Duoneb 3 Mg/0.5 Mg (3 Ml) Ud) 3 ml IH Q4 PRN PRN Reason: Wheezing, SOB Amlodipine Besylate (Norvasc) 10 mg PO DAILY [facility] Last Admin: 01/19/17 08:38 Dose: 10 mg Atorvastatin Calcium (Lipitor) 80 mg PO HS [facility] Last Admin: 01/18/17 21:33 Dose: 80 mg Diltiazem HCl (Cardizem) 30 mg PO Q8 [facility] Last Admin: 01/19/17 05:30 Dose: 30 mg Insulin Human Lispro (Humalog) 0 units SC ACHS [facility] PRN Reason: Protocol Last Admin: 01/19/17 07:04 Dose: Not Given Metformin HCl (Glucophage) 500 mg PO BID [facility] Last Admin: 01/19/17 08:39 Dose: 500 mg Metoprolol Tartrate (Lopressor) 100 mg PO Q12 [facility] Last Admin: 01/19/17 08:39 Dose: 100 mg Pantoprazole Sodium (Protonix Ec Tab) 40 mg PO 0630 [facility] Last Admin: 01/19/17 05:31 Dose: 40 mg Petrolatum (Boudreauxs) 1 appl TP BID [facility] Last Admin: 01/19/17 08:39 Dose: 1 appl Phenylephrine HCl (Preparation H Suppositories) 1 supp [place] BID PRN PRN Reason: hemorrhoid Polyethylene Glycol (Miralax) 17 gm PO DAILY [facility] Last Admin: 01/19/17 08:40 Dose: 17 gm Fluticasone/Salmeterol (Advair Diskus 250/50) 1 puff IH Q12 [facility] Last Admin: 01/19/17 08:40 Dose: 1 puff Senna/Docusate Sodium (Senokot S 50 Mg-8.6 Mg) 2 tab PO HS PRN PRN Reason: Constipation Last Admin: 01/13/17 21:06 Dose: 2 tab Valsartan (Diovan) 160 mg PO DAILY [facility] Last Admin: 01/19/17 08:39 Dose: 160 mg - Labs Labs: 01/12/17 07:05 01/12/17 07:05 Assessment and Plan - Assessment and Plan (Free Text) Plan: 76 yo female with history of previous CVA with residual speech deficit, CAD ( CABG), DM2, COPD, AFib (on Xarelto), CHF and CKD brought to [facility] on 01/06/2017 because of sudden right sided weakness and right facial droop. CT scan of the head showed left putamen hemorrhagic infarct. Pt was admitted in ICU and all anticoagulant and antiplatelet were held. Pt is now transferred and admitted to acute rehab to continue management and continue rehab. including PT/OT and speech therapy. Doing well, continue current management (1) CVA (cerebral vascular accident) Status: Acute Comment: physiatry consult with Dr Leija. continue PT/OT and speech therapy HOLD asa statin neuro consult Dr. Infante (2) CAD (coronary artery disease) Status: Acute Comment: hold ASA and Xarelto. continue statin and Metoprolol and Diovan (3) Afib Status: Acute Comment: rate controlled. continue Cardizem and Metoprolol. hold Xarelto and ASA (4) HTN (hypertension) Status: Acute Comment: continue Amlodipine, Metoprolol, Valsartan and Cardizem (5) DM2 (diabetes mellitus, type 2) Status: Acute Comment: accuchek ACHS with low Lispro coverage. HgA1C, BMP in am. Metformin 500mg PO BID (6) COPD (chronic obstructive pulmonary disease) Status: Acute Comment: Duoneb q 4hrs prn for wheezing/SOB. Fluticasone/Salmeterol inhaler daily (7) Hemorrhoids continue hemorrhoid cream
--- NOTE | 2017-01-19 14:35 | CT ---
PROCEDURE: CT HEAD WITHOUT CONTRAST. HISTORY: post stroke COMPARISON: No prior outside examinations available TECHNIQUE: Axial computed tomography images were obtained through the head/brain without intravenous contrast. Radiation dose: Total exam DLP = 1251.62 mGy-cm. FINDINGS: HEMORRHAGE: Left basal gangliar hemorrhage. Surrounding vasogenic edema noted. There is persistent bright blood seen at the site of what is known to be a hemorrhagic infarct on basis of an outside examination, as per the patient's nurse. No other intracranial hemorrhage is seen. There is no extra-axial hemorrhage or intraventricular hemorrhage. BRAIN: No intracranial mass identified. Moderate age-appropriate diffuse atrophy. There is moderate to severe periventricular white matter lucency with patchy and confluent areas of lucency in the deep and subcortical white matter bilaterally, consistent with microvascular ischemic. VENTRICLES: Unremarkable. No hydrocephalus. CALVARIUM: Unremarkable. PARANASAL SINUSES: Unremarkable as visualized. No significant inflammatory changes. MASTOID AIR CELLS: Unremarkable as visualized. No inflammatory changes. OTHER FINDINGS: None. IMPRESSION: Left basal ganglia hemorrhage with surrounding vasogenic edema. This is reportedly at the site of the known hemorrhagic infarct as demonstrated on outside prior CT examination, according to the patient's nurse. No prior examination has been submitted for comparison. Moderate to severe chronic white matter ischemic change. Moderate atrophy. The findings in this examination were discussed by telephone with the nurse caring for this patient on Minnie, at 2:18 p.m. on 01/19/2017.
[2017-01-20] MEDS: Pantoprazole 40 mg EC Tab PO SCH (06:11)
[2017-01-20] MEDS: Insulin Lispro (humaLOG) 100 Units/ml Inj SC SCH ×4 (06:46→21:24)
[2017-01-20] MEDS: Zinc Oxide 5 APPL/28 GM OINT TP SCH ×2 (09:21→16:59)
[2017-01-20] MEDS: Fluticasone-Salmeterol 250-50mcg Diskus IH SCH ×2 (09:21→21:16)
[2017-01-20] MEDS: POLYETHYLENE GLYCOL 3350 17 GM/Dose PACKET PO SCH (09:23)
--- NOTE | 2017-01-20 18:51 | CP.PCM.PN ---
Subjective - Date & Time of Evaluation Date of Evaluation: 01/20/17 Time of Evaluation: 18:50 - Subjective Subjective: Patient seen in room had a good day today and improved gait and safety discussed with Ann and the family aware of the impending d/c time continue with current care Objective - Vital Signs/Intake and Output Vital Signs (last 24 hours): Temp Pulse Resp BP Pulse Ox 96.6 F L 66 20 134/72 100 01/20/17 15:38 01/20/17 15:38 01/20/17 15:38 01/20/17 15:38 01/20/17 15:38 - Medications Medications: Current Medications Albuterol/Ipratropium (Duoneb 3 Mg/0.5 Mg (3 Ml) Ud) 3 ml IH Q4 PRN PRN Reason: Wheezing, SOB Amlodipine Besylate (Norvasc) 10 mg PO DAILY [facility] Last Admin: 01/20/17 09:23 Dose: 10 mg Atorvastatin Calcium (Lipitor) 80 mg PO HS [facility] Last Admin: 01/19/17 22:07 Dose: 80 mg Diltiazem HCl (Cardizem) 30 mg PO Q8 [facility] Last Admin: 01/20/17 14:22 Dose: 30 mg Insulin Human Lispro (Humalog) 0 units SC ACHS [facility] PRN Reason: Protocol Last Admin: 01/20/17 16:57 Dose: Not Given Lactulose (Enulose) 20 gm PO DAILY PRN PRN Reason: Constipation Last Admin: 01/19/17 17:47 Dose: 20 gm Metformin HCl (Glucophage) 500 mg PO BID [facility] Last Admin: 01/20/17 16:57 Dose: 500 mg Metoprolol Tartrate (Lopressor) 100 mg PO Q12 [facility] Last Admin: 01/20/17 09:17 Dose: 100 mg Pantoprazole Sodium (Protonix Ec Tab) 40 mg PO 0630 [facility] Last Admin: 01/20/17 06:11 Dose: 40 mg Petrolatum (Boudreauxs) 1 appl TP BID [facility] Last Admin: 01/20/17 16:59 Dose: 1 appl Phenylephrine HCl (Preparation H Suppositories) 1 supp [place] BID PRN PRN Reason: hemorrhoid Polyethylene Glycol (Miralax) 17 gm PO DAILY [facility] Last Admin: 01/20/17 09:23 Dose: 17 gm Fluticasone/Salmeterol (Advair Diskus 250/50) 1 puff IH Q12 [facility] Last Admin: 01/20/17 09:21 Dose: 1 puff Senna/Docusate Sodium (Senokot S 50 Mg-8.6 Mg) 2 tab PO HS PRN PRN Reason: Constipation Last Admin: 01/13/17 21:06 Dose: 2 tab Valsartan (Diovan) 160 mg PO DAILY [facility] Last Admin: 01/20/17 09:17 Dose: 160 mg - Labs Labs: 01/12/17 07:05 01/12/17 07:05
[2017-01-21] MEDS: Pantoprazole 40 mg EC Tab PO SCH (06:18)
[2017-01-21] MEDS: Insulin Lispro (humaLOG) 100 Units/ml Inj SC SCH ×4 (07:14→21:22)
[2017-01-21] MEDS: Fluticasone-Salmeterol 250-50mcg Diskus IH SCH ×2 (08:42→21:19)
[2017-01-21] MEDS: Zinc Oxide 5 APPL/28 GM OINT TP SCH ×2 (08:43→16:44)
[2017-01-21] MEDS: POLYETHYLENE GLYCOL 3350 17 GM/Dose PACKET PO SCH (08:44)
--- NOTE | 2017-01-21 15:47 | CP.PCM.PN ---
Subjective - Date & Time of Evaluation Date of Evaluation: 01/21/17 Time of Evaluation: 11:00 - Subjective Subjective: Pt seen and examined. Did well with therapy, walking along the [address] without difficulty. Objective - Vital Signs/Intake and Output Vital Signs (last 24 hours): Temp Pulse Resp BP Pulse Ox 98.2 F 67 20 127/64 96 01/21/17 09:00 01/21/17 13:26 01/21/17 09:00 01/21/17 13:26 01/21/17 09:00 - Medications Medications: Current Medications Albuterol/Ipratropium (Duoneb 3 Mg/0.5 Mg (3 Ml) Ud) 3 ml IH Q4 PRN PRN Reason: Wheezing, SOB Amlodipine Besylate (Norvasc) 10 mg PO DAILY [facility] Last Admin: 01/21/17 08:44 Dose: 10 mg Atorvastatin Calcium (Lipitor) 80 mg PO HS [facility] Last Admin: 01/20/17 21:22 Dose: 80 mg Diltiazem HCl (Cardizem) 30 mg PO Q8 [facility] Last Admin: 01/21/17 13:26 Dose: 30 mg Insulin Human Lispro (Humalog) 0 units SC ACHS [facility] PRN Reason: Protocol Last Admin: 01/21/17 11:44 Dose: Not Given Lactulose (Enulose) 20 gm PO DAILY PRN PRN Reason: Constipation Last Admin: 01/19/17 17:47 Dose: 20 gm Metformin HCl (Glucophage) 500 mg PO BID [facility] Last Admin: 01/21/17 08:43 Dose: 500 mg Metoprolol Tartrate (Lopressor) 100 mg PO Q12 [facility] Last Admin: 01/21/17 08:43 Dose: 100 mg Pantoprazole Sodium (Protonix Ec Tab) 40 mg PO 0630 [facility] Last Admin: 01/21/17 06:18 Dose: 40 mg Petrolatum (Boudreauxs) 1 appl TP BID [facility] Last Admin: 01/21/17 08:43 Dose: 1 appl Phenylephrine HCl (Preparation H Suppositories) 1 supp [place] BID PRN PRN Reason: hemorrhoid Polyethylene Glycol (Miralax) 17 gm PO DAILY [facility] Last Admin: 01/21/17 08:44 Dose: 17 gm Fluticasone/Salmeterol (Advair Diskus 250/50) 1 puff IH Q12 [facility] Last Admin: 01/21/17 08:42 Dose: 1 puff Senna/Docusate Sodium (Senokot S 50 Mg-8.6 Mg) 2 tab PO HS PRN PRN Reason: Constipation Last Admin: 01/13/17 21:06 Dose: 2 tab Valsartan (Diovan) 160 mg PO DAILY [facility] Last Admin: 01/21/17 08:43 Dose: 160 mg - Labs Labs: 01/12/17 07:05 01/12/17 07:05 - Constitutional Appears: No Acute Distress - Head Exam Head Exam: ATRAUMATIC - Eye Exam Eye Exam: absent: Scleral icterus - ENT Exam ENT Exam: Mucous Membranes Moist - Neck Exam Neck Exam: absent: Meningismus - Respiratory Exam Respiratory Exam: absent: Rhonchi, Wheezes, Respiratory Distress - Cardiovascular Exam Cardiovascular Exam: REGULAR RHYTHM, +S1, +S2 - GI/Abdominal Exam GI & Abdominal Exam: Soft. absent: Tenderness - Rectal Exam Rectal Exam: Deferred - Neurological Exam Neurological Exam: Alert, Oriented x3 - Psychiatric Exam Psychiatric exam: Normal Affect - Skin Skin Exam: Dry, Intact Assessment and Plan - Assessment and Plan (Free Text) Assessment: 76 yo male with history of previous CVA with residual speech deficit, CAD (CABG) , DM2, COPD, AFib (on Xarelto), CHF and CKD [place] [facility] [place] because of sudden onset of right sided weakness and right facial droop. CT scan of the head showed left putamen hemorrhagic infarct. Pt was stabilized and managed in ICU. Pt is now in acute rehab continuing PT/OT and speech therapy. (1) CVA (cerebral vascular accident) physiatry consult with Dr Leija. doing well with PT/OT and speech therapy continue statin, hold ASA neuro consult with Dr. Infante (2) CAD (coronary artery disease) hold ASA and Xarelto. continue statin and Metoprolol and Diovan (3) Afib heart rate controlled. continue Cardizem and Metoprolol. hold Xarelto and ASA (4) HTN (hypertension) BP stable continue Amlodipine, Metoprolol, Valsartan and Cardizem (5) DM2 BS controlled Metformin 500mg PO BID (6) COPD Duoneb q 4hrs prn for wheezing/SOB. Fluticasone/Salmeterol inhaler 1 puff q 12hrs (7) Hemorrhoids continue Preparation H supp [place] BID
--- NOTE | 2017-01-21 17:56 | CP.PCM.PN ---
Subjective - Date & Time of Evaluation Date of Evaluation: 01/21/17 Time of Evaluation: 17:55 - Subjective Subjective: Patient seen in room feeling good denies pain continues to improve safety and balance still in need of acute inpatient rehabilitation Objective - Vital Signs/Intake and Output Vital Signs (last 24 hours): Temp Pulse Resp BP Pulse Ox 98.1 F 69 20 109/57 L 94 L 01/21/17 16:10 01/21/17 16:10 01/21/17 16:10 01/21/17 16:10 01/21/17 16:10 - Medications Medications: Current Medications Albuterol/Ipratropium (Duoneb 3 Mg/0.5 Mg (3 Ml) Ud) 3 ml IH Q4 PRN PRN Reason: Wheezing, SOB Amlodipine Besylate (Norvasc) 10 mg PO DAILY [facility] Last Admin: 01/21/17 08:44 Dose: 10 mg Atorvastatin Calcium (Lipitor) 80 mg PO HS [facility] Last Admin: 01/20/17 21:22 Dose: 80 mg Diltiazem HCl (Cardizem) 30 mg PO Q8 [facility] Last Admin: 01/21/17 13:26 Dose: 30 mg Insulin Human Lispro (Humalog) 0 units SC ACHS [facility] PRN Reason: Protocol Last Admin: 01/21/17 16:13 Dose: Not Given Lactulose (Enulose) 20 gm PO DAILY PRN PRN Reason: Constipation Last Admin: 01/19/17 17:47 Dose: 20 gm Metformin HCl (Glucophage) 500 mg PO BID [facility] Last Admin: 01/21/17 16:44 Dose: 500 mg Metoprolol Tartrate (Lopressor) 100 mg PO Q12 [facility] Last Admin: 01/21/17 08:43 Dose: 100 mg Pantoprazole Sodium (Protonix Ec Tab) 40 mg PO 0630 [facility] Last Admin: 01/21/17 06:18 Dose: 40 mg Petrolatum (Boudreauxs) 1 appl TP BID [facility] Last Admin: 01/21/17 16:44 Dose: 1 appl Phenylephrine HCl (Preparation H Suppositories) 1 supp [place] BID PRN PRN Reason: hemorrhoid Polyethylene Glycol (Miralax) 17 gm PO DAILY [facility] Last Admin: 01/21/17 08:44 Dose: 17 gm Fluticasone/Salmeterol (Advair Diskus 250/50) 1 puff IH Q12 [facility] Last Admin: 01/21/17 08:42 Dose: 1 puff Senna/Docusate Sodium (Senokot S 50 Mg-8.6 Mg) 2 tab PO HS PRN PRN Reason: Constipation Last Admin: 01/13/17 21:06 Dose: 2 tab Valsartan (Diovan) 160 mg PO DAILY [facility] Last Admin: 01/21/17 08:43 Dose: 160 mg - Labs Labs: 01/12/17 07:05 01/12/17 07:05
[2017-01-22] MEDS: Pantoprazole 40 mg EC Tab PO SCH (06:39)
[2017-01-22] MEDS: Insulin Lispro (humaLOG) 100 Units/ml Inj SC SCH ×4 (06:44→21:51)
[2017-01-22 07:19] LABS: HEMATOCRIT 34.5 % (35.0-51.0); MEAN CELL VOLUME 93.8 fl (80.0-94.0); MEAN CORPUSCULAR HEMOGLOBIN 31.8 pg (27.0-31.0); MEAN CORPUSCULAR HGB CONC 33.9 g/dL (33.0-37.0); RED CELL DISTRIBUTION WIDTH 13.9 % (11.5-14.5); WHITE BLOOD COUNT 5.5 K/uL (4.8-10.8)
[2017-01-22 07:23] LABS: BLOOD UREA NITROGEN 24 mg/dl (9-20); CALCIUM 9.2 mg/dL (8.4-10.2); CARBON DIOXIDE 27 mmol/L (22-30); CHLORIDE 107 mmol/L (98-107); GFR AFRICAN-AMERICAN > 60; GLUCOSE,RANDOM 97 mg/dL (75-110); POTASSIUM 4.2 MMOL/L (3.6-5.0); SODIUM 139 mmol/l (132-148)
[2017-01-22] MEDS: POLYETHYLENE GLYCOL 3350 17 GM/Dose PACKET PO SCH (08:24)
[2017-01-22] MEDS: Fluticasone-Salmeterol 250-50mcg Diskus IH SCH ×2 (08:24→21:45)
[2017-01-22] MEDS: Zinc Oxide 5 APPL/28 GM OINT TP SCH ×2 (08:25→17:00)
[2017-01-23] MEDS: Pantoprazole 40 mg EC Tab PO SCH (06:56)
[2017-01-23] MEDS: Insulin Lispro (humaLOG) 100 Units/ml Inj SC SCH ×4 (07:01→22:00)
[2017-01-23 08:14] LABS: BLOOD UREA NITROGEN 24 mg/dl (9-20); CALCIUM 9.2 mg/dL (8.4-10.2); CARBON DIOXIDE 28 mmol/L (22-30); CHLORIDE 105 mmol/L (98-107); GFR AFRICAN-AMERICAN > 60; GLUCOSE,RANDOM 96 mg/dL (75-110); POTASSIUM 4.2 MMOL/L (3.6-5.0); SODIUM 138 mmol/l (132-148)
[2017-01-23] MEDS: Fluticasone-Salmeterol 250-50mcg Diskus IH SCH ×2 (08:40→21:22)
[2017-01-23] MEDS: Zinc Oxide 5 APPL/28 GM OINT TP SCH ×2 (08:40→16:41)
[2017-01-23] MEDS: POLYETHYLENE GLYCOL 3350 17 GM/Dose PACKET PO SCH (08:41)
[2017-01-23 16:06] VITALS: RESP 20
[2017-01-24] MEDS: Pantoprazole 40 mg EC Tab PO SCH (06:24)
[2017-01-24] MEDS: Insulin Lispro (humaLOG) 100 Units/ml Inj SC SCH ×4 (07:41→21:59)
[2017-01-24] MEDS: Fluticasone-Salmeterol 250-50mcg Diskus IH SCH ×2 (08:42→21:56)
[2017-01-24] MEDS: POLYETHYLENE GLYCOL 3350 17 GM/Dose PACKET PO SCH (08:43)
[2017-01-24] MEDS: Zinc Oxide 5 APPL/28 GM OINT TP SCH ×2 (08:43→16:22)
--- NOTE | 2017-01-24 13:03 | CP.PCM.PN ---
Subjective - Date & Time of Evaluation Date of Evaluation: 01/24/17 Time of Evaluation: 14:30 - Subjective Subjective: Patient seen and evaluated bedside. participating with PT. SEUNeeling well. Hemodynamically stable, afebrile. For discharge in AM. Objective - Vital Signs/Intake and Output Vital Signs (last 24 hours): Temp Pulse Resp BP Pulse Ox 97.3 F L 64 20 136/72 98 01/24/17 09:00 01/24/17 09:00 01/24/17 09:00 01/24/17 09:00 01/24/17 09:00 - Medications Medications: Current Medications Albuterol/Ipratropium (Duoneb 3 Mg/0.5 Mg (3 Ml) Ud) 3 ml IH Q4 PRN PRN Reason: Wheezing, SOB Amlodipine Besylate (Norvasc) 10 mg PO DAILY [facility] Last Admin: 01/24/17 08:43 Dose: 10 mg Atorvastatin Calcium (Lipitor) 80 mg PO HS [facility] Last Admin: 01/23/17 21:23 Dose: 80 mg Diltiazem HCl (Cardizem) 30 mg PO Q8 [facility] Last Admin: 01/24/17 06:24 Dose: 30 mg Insulin Human Lispro (Humalog) 0 units SC ACHS [facility] PRN Reason: Protocol Last Admin: 01/24/17 12:08 Dose: Not Given Lactulose (Enulose) 20 gm PO DAILY PRN PRN Reason: Constipation Last Admin: 01/19/17 17:47 Dose: 20 gm Metformin HCl (Glucophage) 500 mg PO BID [facility] Last Admin: 01/24/17 08:44 Dose: 500 mg Metoprolol Tartrate (Lopressor) 100 mg PO Q12 [facility] Last Admin: 01/24/17 08:43 Dose: 100 mg Pantoprazole Sodium (Protonix Ec Tab) 40 mg PO 0630 [facility] Last Admin: 01/24/17 06:24 Dose: 40 mg Petrolatum (Boudreauxs) 1 appl TP BID [facility] Last Admin: 01/24/17 08:43 Dose: Not Given Phenylephrine HCl (Preparation H Suppositories) 1 supp [place] BID PRN PRN Reason: hemorrhoid Polyethylene Glycol (Miralax) 17 gm PO DAILY [facility] Last Admin: 01/24/17 08:43 Dose: Not Given Fluticasone/Salmeterol (Advair Diskus 250/50) 1 puff IH Q12 [facility] Last Admin: 01/24/17 08:42 Dose: 1 puff Senna/Docusate Sodium (Senokot S 50 Mg-8.6 Mg) 2 tab PO HS PRN PRN Reason: Constipation Last Admin: 01/13/17 21:06 Dose: 2 tab Valsartan (Diovan) 80 mg PO DAILY [facility] Last Admin: 01/24/17 08:44 Dose: 80 mg - Labs Labs: 01/22/17 06:00 01/23/17 05:30 - Constitutional Appears: Well, No Acute Distress - Head Exam Head Exam: ATRAUMATIC, NORMAL INSPECTION, NORMOCEPHALIC - Eye Exam Eye Exam: EOMI, Normal appearance, PERRL Pupil Exam: NORMAL ACCOMODATION - ENT Exam ENT Exam: Mucous Membranes Moist, Normal Exam - Neck Exam Neck Exam: Full ROM, Normal Inspection - Respiratory Exam Respiratory Exam: Clear to Ausculation Bilateral, NORMAL BREATHING PATTERN. absent: Rales, Rhonchi, Wheezes - Cardiovascular Exam Cardiovascular Exam: REGULAR RHYTHM, RRR, +S1, +S2. absent: JVD - GI/Abdominal Exam GI & Abdominal Exam: Soft, Normal Bowel Sounds. absent: Distended, Guarding, Tenderness, Rebound - Rectal Exam Rectal Exam: Deferred - Extremities Exam Extremities Exam: Full ROM, Normal Capillary Refill, Normal Inspection. absent : Calf Tenderness, Pedal Edema - Back Exam Back Exam: NORMAL INSPECTION - Neurological Exam Neurological Exam: Alert, Awake, Oriented x3 Additional comments: right facial droop - Psychiatric Exam Psychiatric exam: Normal Affect, Normal Mood - Skin Skin Exam: Dry, Intact, Normal Color, Warm Assessment and Plan - Assessment and Plan (Free Text) Assessment: 76 yo male with history of previous CVA with residual speech deficit, CAD (CABG) , DM2, COPD, AFib (on Xarelto), CHF and CKD brought to [facility] [place] on 01/06/2017 because of sudden onset of right sided weakness and right facial droop. CT scan of the head showed left putamen hemorrhagic infarct. Pt was stabilized and managed in ICU. Pt is now in acute rehab continuing PT/OT and speech therapy. (1) CVA (cerebral vascular accident)-- hemorrhagic physiatry consult with Dr Leija. doing well with PT/OT and speech therapy continue statin, hold ASA For discharge in AM (2) CAD (coronary artery disease) hold ASA and Xarelto. continue statin , Metoprolol and Diovan (3) Afib heart rate controlled. continue Cardizem and Metoprolol. hold Xarelto and ASA due to recent hemorrhagic stroke (4) HTN (hypertension) BP stable continue Amlodipine, Metoprolol, Valsartan and Cardizem (5) DM2 with episodes of hypoglycemia decrease Metformin from 500 mg po bid to once a day hgb A1c 6.0 (6) COPD stable Duoneb q 4hrs prn for wheezing/SOB. Fluticasone/Salmeterol inhaler 1 puff q 12hrs (7) Hemorrhoids continue Preparation H supp [place] BID 8. DVT prophylaxis SCD no anticoagulatin due to recent hemorrhagic stroke
[2017-01-24 19:49] VITALS: O2SAT 98
[2017-01-25] MEDS: Pantoprazole 40 mg EC Tab PO SCH (06:52)
[2017-01-25 06:53] VITALS: PULSE 69
[2017-01-25] MEDS: Insulin Lispro (humaLOG) 100 Units/ml Inj SC SCH ×2 (06:53→11:30)
[2017-01-25] MEDS: Zinc Oxide 5 APPL/28 GM OINT TP SCH (08:55)
[2017-01-25] MEDS: POLYETHYLENE GLYCOL 3350 17 GM/Dose PACKET PO SCH (08:55)
[2017-01-25] MEDS: Fluticasone-Salmeterol 250-50mcg Diskus IH SCH (08:55)
[2017-01-25 08:56] VITALS: BP 118/55
[2017-01-25 08:59] VITALS: TEMP 97.8
--- NOTE | 2017-01-25 11:54 | CP.PCM.DIS ---
Provider - Provider Date of Admission: 01/11/17 18:44 Attending physician: Jens Yi MD Primary care physician: Jens Yi MD Consults: Neurology cosnult physiatry consult Time Spent in preparation of Discharge (in minutes): 15 Hospital Course - Lab Results Lab Results: Most Recent Lab Values WBC 5.5 K/uL (4.8-10.8) 01/22/17 06:00 RBC 3.68 Mil/uL (4.40-5.90) L 01/22/17 06:00 Hgb 11.7 g/dL (12.0-18.0) L 01/22/17 06:00 Hct 34.5 % (35.0-51.0) L 01/22/17 06:00 MCV 93.8 fl (80.0-94.0) 01/22/17 06:00 MCH 31.8 pg (27.0-31.0) H 01/22/17 06:00 MCHC 33.9 g/dL (33.0-37.0) 01/22/17 06:00 RDW 13.9 % (11.5-14.5) 01/22/17 06:00 Plt Count 193 K/uL (130-400) 01/22/17 06:00 MPV 8.9 fl (7.2-11.7) 01/12/17 07:05 Neut % (Auto) 63.0 % (50.0-75.0) 01/12/17 07:05 Lymph % (Auto) 21.6 % (20.0-40.0) 01/12/17 07:05 [place] % (Auto) 8.9 % (0.0-10.0) 01/12/17 07:05 Eos % (Auto) 6.0 % (0.0-4.0) H 01/12/17 07:05 Baso % (Auto) 0.5 % (0.0-2.0) 01/12/17 07:05 Neut # 4.2 K/uL (1.8-7.0) 01/12/17 07:05 Lymph # 1.5 K/uL (1.0-4.3) 01/12/17 07:05 [place] # 0.6 K/uL (0.0-0.8) 01/12/17 07:05 Eos # 0.4 K/uL (0.0-0.7) 01/12/17 07:05 Baso # 0.0 K/uL (0.0-0.2) 01/12/17 07:05 Sodium 138 mmol/l (132-148) 01/23/17 05:30 Potassium 4.2 MMOL/L (3.6-5.0) 01/23/17 05:30 Chloride 105 mmol/L (98-107) 01/23/17 05:30 Carbon Dioxide 28 mmol/L (22-30) 01/23/17 05:30 Anion Gap 9 (10-20) L 01/23/17 05:30 BUN 24 mg/dl (9-20) H 01/23/17 05:30 Creatinine 1.3 mg/dL (0.8-1.5) 01/23/17 05:30 Est GFR ( Amer) > 60 01/23/17 05:30 Est GFR (Non-Af Amer) 53 01/23/17 05:30 POC Glucose (mg/dL) 97 mg/dL (65-110) 01/25/17 05:38 Random Glucose 96 mg/dL (75-110) 01/23/17 05:30 Calcium 9.2 mg/dL (8.4-10.2) 01/23/17 05:30 - Hospital Course Hospital Course: 76 yo male with history of previous CVA with residual speech deficit, CAD (CABG) , DM2, COPD, AFib (on Xarelto), CHF and CKD brought to [facility] [place] on 01/06/2017 because of sudden onset of right sided weakness and right facial droop. CT scan of the head showed left putamen hemorrhagic infarct. Pt was stabilized and managed in ICU. He wsa transferred to acute rehab for physical therapy and partipated well with significant improvement. patient for discharge home today. (1) CVA (cerebral vascular accident)-- hemorrhagic physiatry consult with Dr Leija appreciated particpated well with PT/OT and speech therapy continue statin, hold ASA D/c home today and follow up with PMD (2) CAD (coronary artery disease) hold ASA and Xarelto. continue statin , Metoprolol and Diovan (3) Afib heart rate controlled. continue Cardizem and Metoprolol. hold Xarelto and ASA due to recent hemorrhagic stroke (4) HTN (hypertension) BP stable continue Amlodipine, Metoprolol, Valsartan and Cardizem (5) DM2 with episodes of hypoglycemia decreaseD Metformin from 500 mg po bid to once a day hgb A1c 6.0 (6) COPD stable Duoneb q 4hrs prn for wheezing/SOB. Fluticasone/Salmeterol inhaler 1 puff q 12hrs (7) Hemorrhoids continue Preparation H supp [place] BID 8. DVT prophylaxis SCD no anticoagulatin due to recent hemorrhagic stroke Discharge Exam - Head Exam Head Exam: ATRAUMATIC, NORMAL INSPECTION, NORMOCEPHALIC - Eye Exam Eye Exam: EOMI, Normal appearance Pupil Exam: NORMAL ACCOMODATION - ENT Exam ENT Exam: Normal Exam - Neck Exam Neck exam: Full Rom, Normal Inspection - Respiratory Exam Respiratory Exam: NORMAL BREATHING PATTERN. absent: Clear to PA & Lateral, Rales, Rhonchi, Wheezes - Cardiovascular Exam Cardiovascular Exam: REGULAR RHYTHM, +S1, +S2. absent: JVD - GI/Abdominal Exam GI & Abdominal Exam: Normal Bowel Sounds, Soft. absent: Distended, Guarding, Rebound, Tenderness - Rectal Exam Rectal Exam: Deferred - Extremities Exam Extremities exam: normal capillary refill, normal inspection, pedal pulses present - Back Exam Back exam: NORMAL INSPECTION - Neurological Exam Neurological exam: Alert, Reflexes Normal Additional comments: RIGHT FACIAL DROOP - Psychiatric Exam Psychiatric exam: Normal Affect, Normal Mood - Skin Skin Exam: Dry, Intact, Normal Color, Warm Discharge Plan - Discharge Medications Prescriptions: Fluticasone/Vilanterol [Breo Ellipta 200-25 Mcg INH] 1 each IH DAILY #1 blst.w.dev diltiaZEM [Cardizem] 30 mg PO Q8 #90 tab Valsartan [Diovan] 80 mg PO DAILY #30 tab Atorvastatin [Lipitor] 80 mg PO HS #30 tab Metoprolol Tartrate [Lopressor] 100 mg PO Q12 #60 tab amLODIPine [Norvasc] 10 mg PO DAILY #30 tab Pantoprazole Sodium [Protonix] 40 mg PO 0630 #30 tablet. metFORMIN [glucOPHAGE] 500 mg PO DAILY #30 tab - Follow Up Plan Condition: GOOD Disposition: HOME/ ROUTINE Patient education suggested?: Yes Instructions: Metoprolol (By mouth), Diltiazem (By mouth), Amlodipine (By mouth ), Metformin (By mouth), Atorvastatin (By mouth), Valsartan (By mouth), Pantoprazole (By mouth), Fluticasone/Vilanterol (By breathing), Stroke (DC) Referrals: Jens Yi MD [Primary Care Provider] -
== END 2017-01-25 12:40 | disposition home or self-care (01) | DRG 57 ==
PROC: F08Z4ZZ Home Management Treatment (ICD-10-PCS; principal; 2017-01-11)
PROC: F07L6FZ Therapeutic Exercise Treatment of Musculoskeletal System - Lower Back / Lower Extremity using Assistive, Adaptive, Supportive or Protective Equipment (ICD-10-PCS; 2017-01-11)
PROC: F06Z3ZZ Aphasia Treatment (ICD-10-PCS; 2017-01-11)
PROC: F07Z9FZ Gait Training/Functional Ambulation Treatment using Assistive, Adaptive, Supportive or Protective Equipment (ICD-10-PCS; 2017-01-11)
PROC: F07 Physical Rehabilitation and Diagnostic Audiology, Rehabilitation, Motor Treatment (ICD-10-PCS; 2017-01-11)
DX: I69.351 Hemiplegia and hemiparesis following cerebral infarction affecting right dominant side (principal); E11.22 Type 2 diabetes mellitus with diabetic chronic kidney disease; E11.649 Type 2 diabetes mellitus with hypoglycemia without coma; I13.0 Hypertensive heart and chronic kidney disease with heart failure and stage 1 through stage 4 chronic kidney disease, or unspecified chronic kidney disease; I50.9 Heart failure, unspecified; F17.210 Nicotine dependence, cigarettes, uncomplicated; I12.9 Hypertensive chronic kidney disease with stage 1 through stage 4 chronic kidney disease, or unspecified chronic kidney disease; I25.10 Atherosclerotic heart disease of native coronary artery without angina pectoris; I48.2 Chronic atrial fibrillation; N18.9 Chronic kidney disease, unspecified; Z95.1 Presence of aortocoronary bypass graft; I69.392 Facial weakness following cerebral infarction; J44.9 Chronic obstructive pulmonary disease, unspecified; K64.9 Unspecified hemorrhoids; Z79.01 Long term (current) use of anticoagulants; I69.328 Other speech and language deficits following cerebral infarction; I69.320 Aphasia following cerebral infarction